=== PATIENT | female | born 2005 | race American Indian/Alaskan Native ===

== ENCOUNTER 2025-06-20 23:07 | Emergency (ER) | payer MEDICAID, SELFPAY ==
[2025-06-20 23:08] VITALS: BMI 39.9
[2025-06-20 23:14] VITALS: BP 131/90; PULSE 82; RESP 18; TEMP 36.4; O2SAT 100
[2025-06-20] MEDS: HYDROcodone/APAP 5/325 TABLET 1 TAB PO (23:44)
[2025-06-20] MEDS: SODIUM CHLORIDE 0.9% 1000 ML 1,000 ML 999 ML IV (23:45)
[2025-06-20] MEDS: ONDANSETRON INJ 2 MG/ML INJ 2 ML 4 MG IVP (23:45)
[2025-06-20] MEDS: FAMOTIDINE INJ 10 MG/ML VIAL 2 ML 20 MG IVP (23:46)
--- NOTE | 2025-06-21 | XR_ITS ---
Examination: Abdomen sonogram, Limited Date and time of exam: June 10002024, 0038 hrs. Indications: Epigastric pain beginning several hours ago Technique: Real-time jain scale transabdominal sonographic images of the upper abdomen obtained. Findings: Multiple gallstones. Normal gallbladder wall 0.2 cm Common bile duct 0.3 cm. Pancreatic head prominent 3.6 cm Liver 19.7 cm fatty infiltration no focal liver lesions Normal hepatopedal portal venous flow. Patent IVC. Impression: Cholelithiasis Pancreatic head measures prominent, if pancreatitis is a clinical consideration, suggest CT scan abdomen pelvis post intravenous contrast follow-up
[2025-06-21 00:04] LABS: Basophils # (Auto) 0.0 Thou/mm3 (0.0-0.2); Basophils % (Auto) 0 % (0-2.5); Eosinophils # (Auto) 0.1 Thou/mm3 (0.0-0.5); Eosinophils % (Auto) 1 % (0-10); Hematocrit 39.2 % (36.0-46.0); Hemoglobin 13.5 g/dL (12.0-16.0); Immature Granulocytes Auto 0.03 Thou/mm3 (0.00-0.00); Lymphocytes # (Auto) 4.0 Thou/mm3 (1.0-4.8); Lymphocytes % (Auto) 30 % (10-50); Mean Corpuscular HGB Conc 34.4 g/dl (31.0-37.0); Mean Corpuscular Hemoglobin 29.2 pg (25.0-35.0); Mean Corpuscular Volume 85 fL (80-100); Monocytes # (Auto) 0.7 Thou/mm3 (0.0-0.8); Monocytes % (Auto) 5 % (0-12); Neutrophils # (Auto) 8.4 Thou/mm3 (1.8-7.7); Neutrophils % (Auto) 63 % (37-80); Nucleated Red Blood Cell # 0.00 Thou/mm3 (0.00-0.00); Nucleated Red Blood Cell % 0 /100 WBC (0); Platelet Count 303 Thou/mm3 (140-440); RDW Standard Deviation 43.2 fL (36.4-46.3); Red Blood Count 4.63 Miln/mm3 (4.00-5.20); White Blood Count 13.3 Thou/mm3 (3.6-11.0)
[2025-06-21 00:36] LABS: Alanine Aminotransferase 8 U/L (10-49); Anion Gap 12 (7-16); Aspartate Amino Transferase 16 U/L (0-34); BUN/Creatinine Ratio 15 Ratio (12-20); Bilirubin,Total 0.2 mg/dL (0.3-1.2); Blood Urea Nitrogen 9 mg/dL (9-23); Calcium 10.1 mg/dL (8.3-10.6); Carbon Dioxide 23.4 mMol/L (20.0-31.0); Chloride 106 mMol/L (98-107); Creatinine (Component) 0.6 mg/dL (0.6-1.3); Estimated Creatinine Clearance 188.2 mL/min (>60); Glucose 93 mg/dL (74-106); Osmolality,Calculated 279 (275-295); Potassium 3.6 mMol/L (3.4-5.1); Sodium 141 mMol/L (136-145); Total Protein 7.1 gm/dL (5.7-8.2); eGFR > 60 See Note
[2025-06-21 00:37] LABS: Albumin, Serum 4.5 gm/dL (3.5-5.0); Albumin/Globulin Ratio 1.7 (1.2-2.2); Alkaline Phosphatase 100 U/L (46-116); Calcium (Corrected) 10.1 mg/dL (8.5-10.1); Globulin 2.6 gm/dL (2.3-3.5); Lipase 41 U/L (12-53)
[2025-06-21 01:58] LABS: Collection Type, Urine Clean Catch
[2025-06-21 02:12] LABS: Bacteria,Urine Rare; Bilirubin,Urine Negative (Negative); Blood,Urine 1+ (Negative); Clarity,Urine Clear (Clear/Hazy); Color,Urine Colorless (Lt Yel-Yel); Glucose, Urine Negative (Negative); Ketones,Urine Negative (Negative); Leukocyte Esterase,Urine Negative (Negative); Nitrite,Urine Negative (Negative); PH,Urine 6.5 (5.0-7.0); Protein,Urine Negative (Neg - Trace); RBC,Urine 4 /hpf (0-3); Specific Gravity,Urine 1.010 (1.001-1.035); Squamous Epithelial Cell,Urine 2 /hpf (0-5); Urobilinogen,Urine Negative mg/dL (0.0-1.0); WBC,Urine 1 /hpf (0-5)
[2025-06-21 02:20] LABS: HCG Qualitative,Urine Negative
--- NOTE | 2025-06-21 02:24 | PRELIM_ITS ---
Gallbladder ultrasound. June 21, 2025 0038 hours Clinical history:Abdominal pain. Epigastric pain x few hours with nausea. No prior study is available for comparison. Findings: The visualized liver is enlarged measuring 19.7 cm and demonstrates increased echogenicity with smooth contour. The main portal vein is patent and demonstrates hepatopetal flow. Multiple calculi are demonstrated within the gallbladder with posterior acoustic shadowing, without evidence of gallbladder w all thickening or pericholecystic fluid. The common duct is normal in caliber at 3 mm. The pancreas is unremarkable to the extent visualized. No free fluid is demonstrated on the submitted images. The inferior vena cava to the extent visualized is within normal limits. Impression: Cholelithiasis. No evidence of wall thickening, pericholecystic fluid or biliary dilatation. Hepatomegaly with fatty infiltration of the liver. Report Electronically Signed By: Margarito Neil 06/21/2025 2:23:47 AM [EST]
--- NOTE | 2025-06-21 03:06 | PD.EDABDPN ---
ED Abdominal Pain RME/HPI General Chief Complaint: Abdominal Pain Stated complaint: STOMACH ISSUE Time seen by provider: 06/20/25 23:15 Arrival date/time: 06/20/25 23:07 This is a case of 29-year-old female who came in in the emergency room due to abdominal pain on and off for 3 days worse today associated with constipation alternating with diarrhea today no nausea no vomiting no blood in stool patient location is on epigastric area and right upper quadrant burning and cramping in character persistence of the symptoms this patient decided to sought consult here in the emergency room Limitations: no limitations Related Data Home Medications ?Medication ?Instructions ?Recorded ?Confirmed vits no.124-ferrous fum 1 tab PO DAILY 05/24/23 05/25/23 27 mg iron-folic acid 800 mcg tablet ( Vitamin) Previous Rx's ?Medication ?Instructions ?Recorded docusate sodium 100 mg capsule 100 mg PO BID #60 caps 05/26/23 (Colace) ibuprofen 800 mg tablet 800 mg PO Q6H PRN pain #90 tabs 05/26/23 lanolin 50 % topical ointment 1 applic topical TID PRN skin 05/26/23 irritation #15 tubes famotidine 20 mg tablet (Pepcid) 20 mg PO BID #60 tabs 06/21/25 hydrocodone 5 mg-acetaminophen 325 1 tab PO Q6H PRN pain #12 tabs 06/21/25 mg tablet ondansetron 4 mg disintegrating 4 mg PO Q8H PRN nausea and 06/21/25 tablet vomiting #20 tabs Allergies Allergy/AdvReac Type Severity Reaction Status Date / Time No Known Allergies Allergy Verified 06/20/25 23:08 Review of Systems Review of Systems Systems Reviewed: All systems reviewed, normal except as documented Constitutional Constitutional: Reports system reviewed and no additional complaints, except as documented, Denies chills and Denies fever(s) Cardiovascular Cardiovascular: Reports system reviewed and no additional complaints, except as documented, Reports as per HPI, Denies chest pain and Denies dyspnea Respiratory Respiratory: Reports system reviewed and no additional complaints, except as documented and Denies dyspnea Gastrointestinal Gastrointestinal: Reports system reviewed and no additional complaints, except as documented, Reports as per HPI, Reports abdominal pain, Reports constipation, Reports diarrhea, Denies heartburn, Denies nausea and Denies vomiting Genitourinary Genitourinary: Reports system reviewed and no additional complaints, except as documented and Reports as per HPI Neurologic Neurologic: Reports system reviewed and no additional complaints, except as documented and Reports as per HPI Past Medical History Past Medical History NEUROLOGIC: Negative Neurological Disorders CARDIAC: Negative Cardiac Disorders or Congestive Heart Failure RESPIRATORY: Negative Chronic Obstructive Pulmonary Disease (COPD) or Asthma GASTROINTESTINAL: Negative Gastrointestinal Disorders GENITOURINARY: Negative Genitourinary Disorders or Renal Disease REPRODUCTIVE: Negative Endometriosis, Genital Herpes, Gonorrhea, Pelvic Inflammatory Disease, Previous Pregnancies, Syphilis or Uterine Prolapse MUSCULOSKELETAL: Negative Musculoskeletal Disorders ENDOCRINE: Negative Endocrine Disorders, Diabetes Mellitus Type 1 or Diabetes Mellitus Type 2 HEMATOLOGIC: Negative Blood Disorders PSYCHO/SOCIAL: Positive Anxiety (controlled by pt.); Negative Psychiatric Problems, Schizophrenia, Recreational Drug Use, Bipolar Disorder, Depression, Behavior Problems, Self-Mutilation, Attention Deficit Disorder, Attention Deficit Hyperactivity Disorder, Depression, Post Traumatic Stress Disorder or Eating Disorder OTHER HISTORY: Negative Hospitalization, Autoimmune Disease, Down Syndrome, Autism, Developmental Delay or Falls Family History FAMILY HISTORY: Positive Family Psychiatric Problems (anxiety); Negative Family Respiratory Disorders, Family Cardiac Disorders, Family Gastrointestinal Problems, Family Cancer, Family Surgery or Family Anesthesia Reaction Surgical History SURGICAL: Negative Section Social History SMOKING STATUS: Current some day smoker ED Exam General Limitations: Present no limitations General appearance: Present alert, in no apparent distress and other (Physical examination patient is awake alert oriented not in distress nontoxic looking well-hydrated well-nourished) Head Head exam: Present atraumatic, normocephalic and normal inspection Eye Eye exam: Present normal appearance, PERRL and EOMI ENT ENT exam: Present normal exam, normal oropharynx and mucous membranes moist Neck Neck exam: Present normal inspection, full ROM and trachea midline; Absent tenderness, meningismus, lymphadenopathy or thyromegaly Chest Chest inspection: Present normal inspection and symmetric chest wall rise; Absent tenderness Respiratory Respiratory exam: Present normal lung sounds bilaterally; Absent respiratory distress, wheezes, stridor, accessory muscle use or prolonged expiratory phase Cardiovascular Cardiovascular exam: Present regular rate, normal rhythm and normal heart sounds; Absent bradycardia, tachycardia, irregular rhythm, systolic murmur or diastolic murmur Abdominal Exam Abdominal exam: Present soft, tenderness (Mild tenderness in the epigastric area and right upper quadrant no CVA tenderness) and normal bowel sounds; Absent distention, guarding, rebound, rigidity, diminished bowel sounds, hyperactive bowel sounds, hypoactive bowel sounds, organomegaly, trauma, psoas sign, obturator sign, Waller's sign, Rovsing's sign, tenderness at McBurney's Point, ascites or hernia Extremities Exam Extremities exam: Present normal inspection and full ROM Back Exam Back exam: Present normal inspection and full ROM Neurological Exam Neurological exam: Present alert, oriented X3, CN II-XII intact, normal gait and reflexes normal; Absent motor sensory deficit Psychiatric Psychiatric exam: Present normal affect and normal mood Skin Skin exam: Present warm, dry, intact and normal color Course Quality Measures none Orders Category Date Time Status US gall bladder Stat Exams 06/21/25 00:00 Taken CBC Stat Lab 06/20/25 23:40 Completed Comprehensive Metabolic Panel Stat Lab 06/20/25 23:40 Completed HCG Qualitative,Urine Stat Lab 06/21/25 01:14 Completed Lipase Stat Lab 06/20/25 23:40 Completed Urinalysis Stat Lab 06/21/25 01:14 Completed Famotidine Inj [Pepcid Inj] Med 06/20/25 23:30 Discontinued 20 mg IVP X1 ONE HYDROcodone*/APAP 5/325 [Luck 5/325] Med 06/20/25 23:30 Discontinued 1 tab PO X1 ONE Ondansetron Inj [Zofran Inj] Med 06/20/25 23:30 Discontinued 4 mg IVP X1 ONE Sodium Chloride 0.9% 1000 ml [Ns] 1,000 ml Med 06/20/25 23:30 Discontinued IV 999 mls/hr Vital Signs Vital signs: Vital Signs Temperature 97.6 F 06/20/25 23:14 Pulse Rate 82 06/20/25 23:14 Respiratory Rate 18 06/20/25 23:14 Blood Pressure 131/90 H 06/20/25 23:14 Pulse Oximetry (%) 100 06/20/25 23:14 Oxygen Delivery Method Room Air 06/20/25 23:14 Oxygen saturation 100% room air normal Abdominal Pain MDM MDM Narrative MDM Narrative:: This is a case of 29-year-old female who came in in the emergency room due to abdominal pain on and off for 3 days worse today associated with constipation alternating with diarrhea today no nausea no vomiting no blood in stool patient location is on epigastric area and right upper quadrant burning and cramping in character persistence of the symptoms this patient decided to sought consult here in the emergency room physical examination patient is awake alert oriented not dehydrated well-hydrated well-nourished patient has no signs and symptoms sepsis dehydration nor acute abdomen abdominal exam is benign nonsurgical no guarding no rebound no rigidity mild tenderness in the epigastric area and right upper quadrant negative Waller's negative psoas negative Rovsing's no active obturator negative CVA tenderness the rest of the physical examination neurological exam is normal and unremarkable blood test showed no leukocytosis no anemia kidney and liver function is normal no electrolyte imbalance lipase is normal urinalysis is normal ultrasound of the gallbladder showed cholelithiasis hepatomegaly and fatty liver patient was given a bolus of normal saline morphine Pepcid and Zofran which patient condition markedly and resolved the symptoms patient reassessment abdominal pain is resolved no guarding no rebound no rigidity no tenderness patient was advised to follow-up with PCP to be referred to quick mixer operator for further evaluation and treatment of cholelithiasis hepatomegaly and fatty liver and general surgeon for cholelithiasis modified diet was advised return precaution to ER for worsening symptoms is advised Patient discharge Patient data External records reviewed:: [facility] previous records Clinical information provided by:: patient Social determinants that could affect healthcare access:: none Patient has the following chronic illnesses:: None How is presenting disease/condition affected by chronic disease/condition?: no chronic disease Evaluation data The following diagnostics were reviewed and interpreted by me:: lab results and radiology exam(s) Lab and/or radiology exams considered but not ordered:: Reviewed Interpretation Summary: Reviewed Medications / Prescriptions Medications or Prescriptions considered but not ordered:: Given Medication administrations:: Medication Administration History Discontinued Medications Hydrocodone Bitart/Acetaminophen (Hydrocodone/Apap 5/325 Tablet) 1 tab PO X1 ONE Stop: 06/20/25 23:31 Last Admin: 06/20/25 23:44 Dose: 1 tab Documented By: NITA Famotidine (Famotidine Inj 10 Mg/Ml Vial 2 Ml) 20 mg IVP X1 ONE Stop: 06/20/25 23:31 Last Admin: 06/20/25 23:46 Dose: 20 mg Documented By: NITA Sodium Chloride (Ns) 1,000 mls @ 999 mls/hr IV .Q1H1M ONE Stop: 06/21/25 00:30 Last Infusion: 06/21/25 01:02 Dose: Infused Documented By: Admin: 06/20/25 23:45 Dose: 999 mls/hr Documented By: SM Ondansetron HCl (Ondansetron Inj 2 Mg/Ml Inj 2 Ml) 4 mg IVP X1 ONE; Protocol Stop: 06/20/25 23:31 Last Admin: 06/20/25 23:45 Dose: 4 mg Documented By: NITA Given Consultations Consultation(s) initiated? (list below): No Diagnosis Differential diagnosis abdominal pain: abdominal pain and other (Cholelithiasis cholecystitis constipation diarrhea) Most likely diagnosis given after review of the tests above:: Cholelithiasis hepatomegaly fatty liver Admission Indicated Admission indicated?: not indicated Explain why admission is indicated or not indicated:: Not indicated Admission Request Was there a request for admission?: No Admission Attestation Admission request attestation: Not indicated Disposition Plan Disposition Plan: Discharge Discharge Attestation Discharge Attestation: The patient and all family members were given an opportunity to ask questions and understood the discharge instructions. Discharge instructions specifically effects, indications for sooner follow up or return to the emergency department, and the expected course of current diagnosis. Patient condition: Stable Discharge Plan Plan Patient Disposition: HOME (Self Care) Patient condition on transfer: Stable Prescriptions/Referrals Prescriptions/Med Rec: New hydrocodone-acetaminophen 5-325 mg tablet 1 tab PO Q6H MDD max 4 tabs per day PRN (Reason: pain) Qty: 12 0RF ondansetron 4 mg tablet,disintegrating 4 mg PO Q8H PRN (Reason: nausea and vomiting) Qty: 20 0RF famotidine [Pepcid] 20 mg tablet 20 mg PO BID Qty: 60 0RF No Action Vitamin 27 mg iron- 800 mcg Tablet 1 tab PO DAILY ibuprofen 800 mg tablet 800 mg PO Q6H MDD 4 PRN (Reason: pain) Qty: 90 0RF docusate sodium [Colace] 100 mg capsule 100 mg PO BID Qty: 60 0RF lanolin 50 % ointment 1 applic topical TID PRN (Reason: skin irritation) Qty: 15 0RF Referrals: Hernan Horton PA-C [Primary Care Provider] - In 1 week Problem List Clinical Impression: Abdominal pain, Cholelithiasis, Fatty liver, Hepatomegaly Patient/Caregiver Discharge Instructions Education Materials: Tests for Liver Disease, Abdominal Pain, Nonalcoholic Fatty Liver ..., What Are Gallstones Additional Instructions: Follow-up with your primary care physician in 2 days for reevaluation and to be referred to quick mixer operator for further evaluation and treatment of cholelithiasis hepatomegaly and fatty liver and to be referred to general surgeon for further evaluation and treatment of cholelithiasis recurrence persistent worsening symptoms or any emergent concern call 911 or go to the nearest emergency room take your medication as directed increase water intake keep hydrated Pedialyte Gatorade for hydration avoid spicy food avoid high cholesterol foods avoid fatty fried baby food avoid alcohol soda coffee avoid skipping of meals Print Language: Nepali Stand Alone Forms: Marge Award Info., Patient Portal Info Letter PA/ELECTRIC [employer]EM[employer] Supervising Physician PA/E[employer]AN Supervising Physician: Dr. Alvarez
== END 2025-06-21 03:13 | disposition home or self-care (01) ==
PROVIDERS: Nurse Practitioner Family; Emergency Provider Emergency Medicine; PCP Physician Assistant
DX: K80.20 Calculus of gallbladder without cholecystitis without obstruction (principal); K76.0 Fatty (change of) liver, not elsewhere classified; R16.0 Hepatomegaly, not elsewhere classified
CPT/HCPCS: 36415; 76705; 80053; 81001; 81025; 83690; 85025; 96361; 96374; 96375; 99283; J2405; J3490; J7030; A9270

== ENCOUNTER 2025-08-16 11:29 | Outpatient (AMB) | payer MEDICAID, SELFPAY ==
[2025-08-16 11:35] VITALS: BP 114/69; PULSE 75; RESP 18; TEMP 35.5; O2SAT 97; BMI 42.0
--- NOTE | 2025-08-16 11:35 | PD.GSCLVISIT ---
Vital Signs - [facility] 08/16/25 11:35 Height 1.68 m Height Method Measured Weight 118.076 kg Weight Measurement Method Standing Scale BMI 42.0 BP 114/69 Blood Pressure Source Automatic Cuff Blood Pressure Location Left Upper Arm Position Right Lateral Respiration 18 Pulse 75 Pulse Source Monitor Temp 95.9 F L Temp Source Temporal Artery Scan Pulse Oximetry (%) 97 Oxygen Delivery Method Room Air Med/Allergies Allergies & Medications Allergies No Known Allergies Allergy (Verified 08/16/25 11:37) Medication Reconciliation vits no.124-ferrous fum 27 mg iron-folic acid 800 mcg tablet ( Vitamin) 1 tab PO DAILY 05/24/23 [History Confirmed 08/16/25] docusate sodium 100 mg capsule (Colace) 100 mg PO BID #60 caps 05/26/23 [Rx Confirmed 08/16/25] ibuprofen 800 mg tablet 800 mg PO Q6H PRN pain #90 tabs 05/26/23 [Rx Confirmed 08/16/25] lanolin 50 % topical ointment 1 applic topical TID PRN skin irritation #15 tubes 05/26/23 [Rx Confirmed 08/16/25] famotidine 20 mg tablet (Pepcid) 20 mg PO BID #60 tabs 06/21/25 [Rx Confirmed 08/16/25] hydrocodone 5 mg-acetaminophen 325 mg tablet 1 tab PO Q6H PRN pain #12 tabs 06/21/25 [Rx Confirmed 08/16/25] ondansetron 4 mg disintegrating tablet 4 mg PO Q8H PRN nausea and vomiting #20 tabs 06/21/25 [Rx Confirmed 08/16/25] MA Intake Visit Data Collection New Patient or Established: Established Patient (seen at [facility] within 3 years) Seen by Clinical Staff ONLY (RN/MA): No Reason for Visit:: REFERRAL CONSTIPATION Pain Present Currently: No Pain scale:: 0 Pain Scale Used: [employer] Required: No PCP or OBGYN visit in last 3 months: Yes Hx Now: No Do You Feel Safe at Home: Yes Authorities Contacted: N/A Smoking Status Smoking Status: Former smoker Immunization / Flu Flu Vaccine in the Last 12 Months: Yes Flu Vaccine Exclusion Criteria: Already Received Past Medical History Past Medical History NEUROLOGIC: Negative Neurological Disorders CARDIAC: Negative Cardiac Disorders or Congestive Heart Failure RESPIRATORY: Negative Chronic Obstructive Pulmonary Disease (COPD) or Asthma GASTROINTESTINAL: Negative Gastrointestinal Disorders GENITOURINARY: Negative Genitourinary Disorders or Renal Disease REPRODUCTIVE: Negative Endometriosis, Genital Herpes, Gonorrhea, Pelvic Inflammatory Disease, Previous Pregnancies, Syphilis or Uterine Prolapse ENDOCRINE: Negative Endocrine Disorders, Diabetes Mellitus Type 1 or Diabetes Mellitus Type 2 HEMATOLOGIC: Negative Blood Disorders PSYCHO/SOCIAL: Positive Anxiety (controlled by pt.); Negative Psychiatric Problems, Schizophrenia, Recreational Drug Use, Bipolar Disorder, Depression, Behavior Problems, Self-Mutilation, Attention Deficit Disorder, Attention Deficit Hyperactivity Disorder, Depression, Post Traumatic Stress Disorder or Eating Disorder OTHER HISTORY: Negative Hospitalization, Autoimmune Disease, Down Syndrome, Autism, Developmental Delay or Falls Family History FAMILY HISTORY: Positive Family Psychiatric Problems (anxiety); Negative Family Respiratory Disorders, Family Cardiac Disorders, Family Gastrointestinal Problems, Family Cancer, Family Surgery or Family Anesthesia Reaction Surgical History SURGICAL: Negative Section Social History SMOKING STATUS: Smoking status: Former smoker ALCOHOL: Alcohol Intake: Former HOUSING: Housing: House LIVES WITH: Lives With: Family HPI HPI Narrative 20F referred for constipation as well as gallstones. Pt states she has had constipation since 2020, she tends to have a BM every few days though it is soft and does not always require straining. She admits to drinking minimal water daily and has not tried fiber or stool softeners/laxatives. She denies any pencil thin stools, blood in stool, anorexia or unintentional weight loss and has never had a colonoscopy. She denies any perianal pain. Pt also notes having episodes of epigastric pain for months. It is worsened after eating fatty foods and tends to last a few hours associated with nausea. Patient presented to ER for this pain and early June and underwent ultrasound consistent with gallstones PMH: Obesity PSH: None Meds: Omeprazole as needed Allergies: NKDA ROS Review of Systems Systems Reviewed: All systems reviewed, normal except as documented Objective/Exam General General Appearance: alert, cooperative and well groomed Resp Respiratory exam: Absent respiratory distress Abdominal Abdominal exam: Present soft; Absent distention or tenderness Results Ultrasound reviewed Assessment & Plan Diagnosis / Problem List (1) Symptomatic cholelithiasis: Status: Acute Assessment & Plan: 20F with history of symptomatic cholelithiasis. I explained that surgery is indicated as she would likely continue to have episodes of pain otherwise. I explained benefits/risks of surgery including need for conversion to open, bleeding, infection, injury to nearby structures requiring further procedures including the possibility of the need for major biliary reconstruction which would need to be done at a tertiary hospital, as well as postoperative hernia and diarrhea. All questions were answered and patient is agreeable to proceeding Plan: Will schedule laparoscopic cholecystectomy possible open (2) Constipation: Status: Acute Assessment & Plan: I recommended patient increase her water intake and when she is used to that to then add fiber supplementation. Office Procedures GNS Level of Care Nursing/Assessment Patient Status: Established Patient Nursing Assessment/Reassesment: Medication Reconciliation, Update PMH in EMR and Vital Signs Coordination of Care: Complex Care and Chronic Disease 1-5, Education Complex Pt/Fam, Consent,records obtained, informed consent, Results/Orders obtained and Staff clarify orders Established Patient Charge Established Patient Point Assignment: 95 Established Patient Point Charge: Level 3 (80-115) Patient Portal Questionaires Social History Living Situation History Housing: House Tobacco History Smoking Status: Former smoker Alcohol History Alcohol Intake: Former Domestic Abuse History Do You Feel Safe at Home: Yes Review of Systems Report any current symptoms Only answer those that you have currently: Past Medical History Past Medical History Have you ever been diagnosed with any of the following: Cardiology Problems Congestive Heart Failure: No Respiratory Problems Chronic Obstructive Pulmonary Disease (COPD): No Asthma: No Genital/Urinary Problems Renal Disease: No Reproductive Problems Endometriosis: No Genital Herpes: No Gonorrhea: No Pelvic Inflammatory Disease: No Previous Pregnancies: No Syphilis: No Uterine Prolapse: No Endocrine Problems Diabetes Mellitus Type 1: No Diabetes Mellitus Type 2: No Psychologic Problems Schizophrenia: No Recreational Drug Use: No Bipolar Disorder: No Depression: No Anxiety: Yes (controlled by pt.) Behavior Problems: No Self-Mutilation: No Attention Deficit Disorder: No Attention Deficit Hyperactivity Disorder: No Depression: No Post Traumatic Stress Disorder: No Eating Disorder: No Other Problems Hospitalization: No Autoimmune Disease: No Down Syndrome: No Autism: No Developmental Delay: No Falls: No
== END 2025-08-16 12:08 | disposition home or self-care (01) ==
LOC: HODSRG 11:29
PROVIDERS: PCP Physician Assistant; Referring Provider Physician Assistant; Supervising Provider Surgery; Visit Provider Surgery
DX: K80.20 Calculus of gallbladder without cholecystitis without obstruction (principal); K59.00 Constipation, unspecified
CPT/HCPCS: 99213; G0463

== ENCOUNTER 2025-09-13 11:37 | Outpatient (AMB) | payer MEDICAID, SELFPAY ==
--- NOTE | 2025-09-13 11:40 | GSCOFFNT_ITS ---
Vital Signs - [facility] 09/13/25 11:46 Height 1.68 m Height Method Measured Weight 117.14 kg Weight Measurement Method Standing Scale BMI 41.5 BP 115/69 Blood Pressure Source Automatic Cuff Blood Pressure Location Left Upper Arm Position Sitting Respiration 18 Pulse 97 Pulse Source Monitor Temp 96.8 F Temp Source Temporal Artery Scan Pulse Oximetry (%) 97 Oxygen Delivery Method Room Air Med/Allergies Allergies & Medications Allergies No Known Allergies Allergy (Verified 09/13/25 11:47) Medication Reconciliation vits no.124-ferrous fum 27 mg iron-folic acid 800 mcg tablet ( Vitamin) 1 tab PO DAILY 05/24/23 [History Confirmed 09/13/25] docusate sodium 100 mg capsule (Colace) 100 mg PO BID #60 caps 05/26/23 [Rx Confirmed 09/13/25] ibuprofen 800 mg tablet 800 mg PO Q6H PRN pain #90 tabs 05/26/23 [Rx Confirmed 09/13/25] lanolin 50 % topical ointment 1 applic topical TID PRN skin irritation #15 tubes 05/26/23 [Rx Confirmed 09/13/25] famotidine 20 mg tablet (Pepcid) 20 mg PO BID #60 tabs 06/21/25 [Rx Confirmed 09/13/25] hydrocodone 5 mg-acetaminophen 325 mg tablet 1 tab PO Q6H PRN pain #12 tabs 06/21/25 [Rx Confirmed 09/13/25] ondansetron 4 mg disintegrating tablet 4 mg PO Q8H PRN nausea and vomiting #20 tabs 06/21/25 [Rx Confirmed 09/13/25] MA Intake Visit Data Collection New Patient or Established: Established Patient (seen at [facility] within 3 years) Seen by Clinical Staff ONLY (RN/MA): No Reason for Visit:: PRE OP LAP LANA Pain Present Currently: No Pain Scale Used: DelgadoMilvia/Numerical Supervisor [employer] Required: No PCP or OBGYN visit in last 3 months: Yes Hx Now: No Do You Feel Safe at Home: Yes Authorities Contacted: N/A Smoking Status Smoking Status: Former smoker Immunization / Flu Flu Vaccine in the Last 12 Months: Yes Flu Vaccine Exclusion Criteria: Already Received Past Medical History Past Medical History NEUROLOGIC: Negative Neurological Disorders CARDIAC: Negative Cardiac Disorders or Congestive Heart Failure RESPIRATORY: Negative Chronic Obstructive Pulmonary Disease (COPD) or Asthma GASTROINTESTINAL: Negative Gastrointestinal Disorders GENITOURINARY: Negative Genitourinary Disorders or Renal Disease REPRODUCTIVE: Negative Endometriosis, Genital Herpes, Gonorrhea, Pelvic Inflammatory Disease, Previous Pregnancies, Syphilis or Uterine Prolapse ENDOCRINE: Negative Endocrine Disorders, Diabetes Mellitus Type 1 or Diabetes Mellitus Type 2 HEMATOLOGIC: Negative Blood Disorders PSYCHO/SOCIAL: Positive Anxiety (controlled by pt.); Negative Psychiatric Problems, Schizophrenia, Recreational Drug Use, Bipolar Disorder, Depression, Behavior Problems, Self-Mutilation, Attention Deficit Disorder, Attention Deficit Hyperactivity Disorder, Depression, Post Traumatic Stress Disorder or Eating Disorder OTHER HISTORY: Negative Hospitalization, Autoimmune Disease, Down Syndrome, Autism, Developmental Delay or Falls Family History FAMILY HISTORY: Positive Family Psychiatric Problems (anxiety); Negative Family Respiratory Disorders, Family Cardiac Disorders, Family Gastrointestinal Problems, Family Cancer, Family Surgery or Family Anesthesia Reaction Surgical History SURGICAL: Negative Section Social History SMOKING STATUS: Smoking status: Former smoker ALCOHOL: Alcohol Intake: Former HOUSING: Housing: House LIVES WITH: Lives With: Family HPI HPI Narrative HISTORY OF PRESENT ILLNESS I, Kayla Sequeira, have obtained verbal consent from the patient, to be recorded during this encounter which may include, but not limited to, medical history, examination, treatment plans, and relevant health information.? Patient was informed that recording will be read and reviewed by myself before inclusion in the medical chart. The patient presents for a preoperative evaluation for a laparoscopic cholecystectomy. She reports overall good health with no recent episodes of pain. However, she experienced mild irritation after consuming a greasy pizza, which was not as severe as her previous episodes. She has been proactive in managing her diet, avoiding certain foods, and incorporating more fiber-rich items such as apples and bananas. She is also mindful of her fluid intake. She has no other complaints and no changes in her health since her last visit ROS Review of Systems Systems Reviewed: All systems reviewed, normal except as documented Objective/Exam General General Appearance: alert, cooperative and well groomed Resp Respiratory exam: Absent respiratory distress Assessment & Plan Diagnosis / Problem List (1) Symptomatic cholelithiasis: Status: Acute Assessment & Plan: 20F with history of symptomatic cholelithiasis. I explained benefits/risks of surgery including need for conversion to open, bleeding, infection, injury to nearby structures requiring further procedures including the possibility of the need for major biliary reconstruction which would need to be done at a tertiary hospital, as well as postoperative hernia and diarrhea. I also detailed the postoperative course and provided return precautions for after surgery. All questions were answered and patient is agreeable to proceeding Office Procedures GNS Level of Care Nursing/Assessment Patient Status: Established Patient Nursing Assessment/Reassesment: Medication Reconciliation, Update PMH in EMR and Vital Signs Coordination of Care: Complex Care and Chronic Disease 1-5, Education Complex Pt/Fam, Consent,records obtained, informed consent, Results/Orders obtained and Staff clarify orders Established Patient Charge Established Patient Point Assignment: 95 Established Patient Point Charge: EP Level 3 (80-115) Patient Portal Questionaires Social History Living Situation History Housing: House Tobacco History Smoking Status: Former smoker Alcohol History Alcohol Intake: Former Domestic Abuse History Do You Feel Safe at Home: Yes Review of Systems Report any current symptoms Only answer those that you have currently: Past Medical History Past Medical History Have you ever been diagnosed with any of the following: Cardiology Problems Congestive Heart Failure: No Respiratory Problems Chronic Obstructive Pulmonary Disease (COPD): No Asthma: No Genital/Urinary Problems Renal Disease: No Reproductive Problems Endometriosis: No Genital Herpes: No Gonorrhea: No Pelvic Inflammatory Disease: No Previous Pregnancies: No Syphilis: No Uterine Prolapse: No Endocrine Problems Diabetes Mellitus Type 1: No Diabetes Mellitus Type 2: No Psychologic Problems Schizophrenia: No Recreational Drug Use: No Bipolar Disorder: No Depression: No Anxiety: Yes (controlled by pt.) Behavior Problems: No Self-Mutilation: No Attention Deficit Disorder: No Attention Deficit Hyperactivity Disorder: No Depression: No Post Traumatic Stress Disorder: No Eating Disorder: No Other Problems Hospitalization: No Autoimmune Disease: No Down Syndrome: No Autism: No Developmental Delay: No Falls: No
[2025-09-13 11:46] VITALS: BP 115/69; PULSE 97; RESP 18; TEMP 36; O2SAT 97; BMI 41.5
== END 2025-09-13 11:53 | disposition home or self-care (01) ==
LOC: HODSRG 11:37
PROVIDERS: PCP Physician Assistant; Referring Provider Physician Assistant; Supervising Provider Surgery; Visit Provider Surgery
DX: K80.20 Calculus of gallbladder without cholecystitis without obstruction (principal); Z87.891 Personal history of nicotine dependence
CPT/HCPCS: 99213; G0463

== ENCOUNTER 2025-09-22 07:25 | Day surgery (SDC) | payer MEDICAID, SELFPAY ==
[2025-09-21 10:15] VITALS: BMI 42.5
[2025-09-21 12:11] LABS: Basophils # (Auto) 0.0 Thou/mm3 (0.0-0.2); Basophils % (Auto) 0 % (0-2.5); Eosinophils # (Auto) 0.1 Thou/mm3 (0.0-0.5); Eosinophils % (Auto) 1 % (0-10); Hematocrit 38.6 % (36.0-46.0); Hemoglobin 13.2 g/dL (12.0-16.0); Immature Granulocytes Auto 0.01 Thou/mm3 (0.00-0.00); Lymphocytes # (Auto) 2.4 Thou/mm3 (1.0-4.8); Lymphocytes % (Auto) 31 % (10-50); Mean Corpuscular HGB Conc 34.2 g/dl (31.0-37.0); Mean Corpuscular Hemoglobin 29.6 pg (25.0-35.0); Mean Corpuscular Volume 87 fL (80-100); Monocytes # (Auto) 0.4 Thou/mm3 (0.0-0.8); Monocytes % (Auto) 6 % (0-12); Neutrophils # (Auto) 4.8 Thou/mm3 (1.8-7.7); Neutrophils % (Auto) 62 % (37-80); Nucleated Red Blood Cell # 0.00 Thou/mm3 (0.00-0.00); Nucleated Red Blood Cell % 0 /100 WBC (0); Platelet Count 292 Thou/mm3 (140-440); RDW Standard Deviation 40.5 fL (36.4-46.3); Red Blood Count 4.46 Miln/mm3 (4.00-5.20); White Blood Count 7.6 Thou/mm3 (3.6-11.0)
[2025-09-21 12:42] LABS: HCG,Qualitative Serum Negative
[2025-09-21 12:48] LABS: INR 1.0 (0.9-1.3); Partial Thromboplastin Time 28.0 Seconds (22.0-36.0); Prothrombin Time 10.4 Seconds (9.0-12.2)
[2025-09-21 13:18] LABS: Anion Gap 10 (7-16); BUN/Creatinine Ratio 14 Ratio (12-20); Blood Urea Nitrogen 10 mg/dL (9-23); Calcium 9.2 mg/dL (8.3-10.6); Carbon Dioxide 25.1 mMol/L (20.0-31.0); Chloride 106 mMol/L (98-107); Creatinine (Component) 0.7 mg/dL (0.6-1.3); Estimated Creatinine Clearance 165.8 mL/min (>60); Glucose 91 mg/dL (74-106); Osmolality,Calculated 280 (275-295); Potassium 4.2 mMol/L (3.4-5.1); Sodium 141 mMol/L (136-145); eGFR > 60 See Note
[2025-09-22] VITALS (9 sets, daily range): BP systolic 101–128; BP diastolic 75–103; PULSE 85–96; RESP 15–20; TEMP 36.3–36.6; O2SAT 96–100; BMI 42.3
[2025-09-22] MEDS: RINGERS LACTATED 1000 ML 1,000 ML 20 ML IV (08:21)
--- NOTE | 2025-09-22 10:52 | PD.SUROPNT ---
Date of Procedure 09/22/25 Pre Op Diagnosis Symptomatic cholelithiasis Post Op Diagnosis Same Procedure Laparoscopic cholecystectomy Findings Distended gallbladder with numerous stones Procedure Description After discussion of risks and benefits, patient was brought to the operating room, SCDs were placed and general anesthesia was induced. She received preoperative antibiotics and was prepped and draped in the usual sterile fashion. After timeout a supraumbilical incision was made with a #15 blade and the skin was elevated with towel clamps. A Veress needle was placed through the incision and proper positioning was confirmed with a drop test. The abdomen was insufflated to 12 mmHg at which point the Veress was exchanged for a 5 mm camera using a Visiport technique. There were no signs of injury from the point of entry. 3 additional ports were placed under direct vision, one 12 mm at the epigastrium, one 5 mm right subcostal and one 5 mm right anterior axillary line. Patient was placed in reverse Trendelenburg. The fundus of the gallbladder was grasped and retracted cephalad and the infundibulum was grasped and retracted laterally. The lower third of the gallbladder was removed from the gallbladder bed using electrocautery and the hepatocystic triangle was cleared of all fat and fibrous tissue using blunt dissection. The critical view of safety was achieved showing 2 and only 2 structures entering the gallbladder. The cystic duct and cystic artery were clipped and transected in the usual fashion. The gallbladder was removed from the gallbladder bed using electrocautery. Hemostasis of the gallbladder bed was achieved using electrocautery. The specimen was removed in an Endo Catch bag via the epigastric port and the epigastric fascia was closed with two 0 Vicryl sutures using a Sai-Mally. Counts were confirmed correct. Pneumoperitoneum was released and ports were removed under direct vision. Incisions were irrigated and infiltrated with half percent Marcaine for a total of 30 cc. Incisions were closed with 4-0 Monocryl and reinforced with Dermabond. Patient was extubated and brought to PACU in stable condition Pathology / specimen Other (Gallbladder with stones) Estimated Blood Loss 25 Surgeon Kayla Sequeira MD Surgical Staff Operation Date: 09/22/25 09:30 Case Staff Anesthesiologist: Renaldo Sanchez RN First Assistant: Tori Orozco
--- NOTE | 2025-09-22 10:53 | ESDS_ITS ---
Planned Discharge Date 09/22/25 DS: Providers Provider Primary care physician: Hernan Horton PA-C Attending Provider on Admission: Kayla Sequeira MD Attending Provider on DC: Kayla Sequeira MD Discharging Provider: Kayla Sequeira MD Diagnosis Discharge Diagnosis (1) Symptomatic cholelithiasis: Status: Acute Problem List Completed Was Problem List Reviewed/Reconciled?: Yes Exam Vital Signs Temp Pulse Resp BP Pulse Ox 97.8 F 90 15 125/84 98 09/22/25 08:05 09/22/25 08:05 09/22/25 08:05 09/22/25 08:05 09/22/25 08:05 Discharge Plan Plan Patient Disposition: HOME (Self Care) Prescriptions/Referrals Prescriptions/Med Rec: New oxycodone-acetaminophen [Percocet] 5-325 mg tablet 1 tab PO Q6H MDD 4 tabs PRN (Reason: pain) Qty: 10 0RF Rx Instructions: Take 1 tablet as needed every 6 hours for moderate to severe pain No Action hydrocodone-acetaminophen 5-325 mg tablet 1 tab PO Q6H MDD max 4 tabs per day PRN (Reason: pain) Qty: 12 0RF famotidine [Pepcid] 20 mg tablet 20 mg PO BID Qty: 60 0RF ibuprofen 800 mg tablet 800 mg PO Q6H MDD 4 PRN (Reason: pain) Qty: 90 0RF Referrals: Kayla Sequeira MD [Physician, General Surgery] Hernan Horton PA-C [Primary Care Provider] Patient/Caregiver Discharge Instructions Other Discharge Activity Instructions:: You may resume showering in 2 days, on 09/24 It is okay to get incisions wet at that time, pat dry after Avoid bathing or swimming for 2 weeks Your incisions have skin glue on them which will fall off on its own and does not need to be replaced Your stitches will not need to be removed During the surgery we fill your abdomen with air in order to see the structures. Some of this air tends to linger and cause pain that is referred to the shoulder as well as pain with deep breaths. This will get better with time. Being out of bed and walking helps the air to absorb faster Avoid lifting objects greater than 10 pounds for 6 weeks if you develop worsening pain, nausea/vomiting, fever or signs of jaundice please seek care in ER Education Materials: Preventing Surgical Site Infections Print Language: Maori Stand Alone Forms: Marge Award Info., Patient Portal Info Letter Discharge Order Discharge Orders: Discharge (Routine); Ordered 09/22/25 Ordered By: Kayla Sequeira Results Results: Laboratory Laboratory results: results reviewed PROCEDURES: Procedure Date 09/22/25 Procedures Laparoscopic cholecystectomy
--- NOTE | 2025-09-22 11:03 | SUR.PHASEI ---
pt received from OR in recovery bay 1. pt obtunded, breathing unlabored on oxymask 8l, oral airway in place. v/s stable. pt dressing to abd dermabond x4 cdi. report received from Dr. Sanchez and Jan SANDOVAL.
[2025-09-22] MEDS: fentaNYL CIT INJ 50 mCg/ML AMP 2ML 25 MCG IVP ×2 (11:33→11:46)
--- NOTE | 2025-09-22 12:25 | SUR.PHASEII ---
Pt. meets criteria for discharge, VSS, no c/o pain or nausea at this time, lap sites x4 CDI, no active bleeding or redness noted, IV discontinued without complications, discharge instructions provided to pt. and pt.'s grandmother, verbalized understanding, pt. escorted to vehicle via w/c with all of belongings by staff.
== END 2025-09-22 12:25 | disposition home or self-care (01) ==
PROVIDERS: PCP Physician Assistant; Referring Provider Surgery; Visit Provider Surgery
PROC: 0FT44ZZ Resection of Gallbladder, Percutaneous Endoscopic Approach (ICD-10-PCS; CPT 47562; principal; 2025-09-22 09:15)
DX: K80.10 Calculus of gallbladder with chronic cholecystitis without obstruction (principal)
CPT/HCPCS: 47562; 36415; 80048; 84703; 85025; 85610; 85730; A4217; A4649; J0694; J0696; J1100; J1885; J2250; J2405; J2704; J3010; J3490; J7120

== ENCOUNTER 2025-10-04 10:04 | Outpatient (AMB) | payer MEDICAID, SELFPAY ==
[2025-10-04 10:21] VITALS: BP 95/64; PULSE 84; RESP 18; TEMP 36.3; O2SAT 97; BMI 40.9
--- NOTE | 2025-10-04 10:21 | GSCOFFNT_ITS ---
Vital Signs - [facility] 10/04/25 10:21 Height 1.68 m Height Method Measured Weight 115.666 kg Weight Measurement Method Standing Scale BMI 40.9 BP 95/64 Blood Pressure Source Automatic Cuff Blood Pressure Location Right Upper Arm Position Sitting Respiration 18 Pulse 84 Pulse Source Monitor Temp 97.3 F Temp Source Temporal Artery Scan Pulse Oximetry (%) 97 Oxygen Delivery Method Room Air Med/Allergies Allergies & Medications Allergies No Known Allergies Allergy (Verified 10/04/25 10:22) Medication Reconciliation ibuprofen 800 mg tablet 800 mg PO Q6H PRN pain #90 tabs 05/26/23 [Rx Confirmed 10/04/25] famotidine 20 mg tablet (Pepcid) 20 mg PO BID #60 tabs 06/21/25 [Rx Confirmed 10/04/25] hydrocodone 5 mg-acetaminophen 325 mg tablet 1 tab PO Q6H PRN pain #12 tabs 06/21/25 [Rx Confirmed 10/04/25] oxycodone-acetaminophen 5 mg-325 mg tablet (Percocet) 1 tab PO Q6H PRN pain #10 tabs 09/22/25 [Rx Confirmed 10/04/25] MA Intake Visit Data Collection New Patient or Established: Established Patient (seen at [facility] within 3 years) Seen by Clinical Staff ONLY (RN/MA): No Reason for Visit:: 2 WEEK POST OP LAP LANA Pain Present Currently: No Pain Scale Used: Delgado-Young/Numerical Footwear Stitcher Required: No PCP or OBGYN visit in last 3 months: Yes Hx Now: No Do You Feel Safe at Home: Yes Authorities Contacted: N/A Smoking Status Smoking Status: Current some day smoker Cessation Counseling Provided: LORENAALEXY was advised that quitting smoking is the single most important factor to protect the health of themselves and their family. Discussed the benefits of quitting smoking with patient. Encouraged patient to quit smoking and provided Cessation assistance materials and resources. Tobacco Use: Vapor Cigarette Years smoked: 1 Are you interested in quitting?: No Immunization / Flu Flu Vaccine in the Last 12 Months: Yes Flu Vaccine Exclusion Criteria: Already Received Past Medical History Past Medical History NEUROLOGIC: Negative Neurological Disorders or Seizures CARDIAC: Negative Cardiac Disorders or Congestive Heart Failure RESPIRATORY: Negative Chronic Obstructive Pulmonary Disease (COPD) or Asthma GASTROINTESTINAL: Positive Gastrointestinal Disorders, Gall Bladder Disease and Obesity GENITOURINARY: Negative Genitourinary Disorders or Renal Disease REPRODUCTIVE: Negative Endometriosis, Genital Herpes, Gonorrhea, Pelvic Inflammatory Disease, Previous Pregnancies, Syphilis or Uterine Prolapse ENDOCRINE: Negative Endocrine Disorders, Diabetes Mellitus Type 1 or Diabetes Mellitus Type 2 HEMATOLOGIC: Negative Blood Disorders PSYCHO/SOCIAL: Positive Anxiety (controlled by pt.); Negative Psychiatric Problems, Schizophrenia, Recreational Drug Use, Bipolar Disorder, Depression, Behavior Problems, Self-Mutilation, Attention Deficit Disorder, Attention Deficit Hyperactivity Disorder, Depression, Post Traumatic Stress Disorder or Eating Disorder OTHER HISTORY: Negative Hospitalization, Autoimmune Disease, Down Syndrome, Autism, Developmental Delay, Shingles, Falls, Blood Transfusions, Anesthesia Reactions, Clostridium Difficile or Cancer Family History FAMILY HISTORY: Positive Family Psychiatric Problems and Family Surgery; Negative Family Respiratory Disorders, Family Cardiac Disorders, Family Gastrointestinal Problems, Family Cancer or Family Anesthesia Reaction Surgical History SURGICAL: Negative Section Social History SMOKING STATUS: Smoking status: Current some day smoker ALCOHOL: Alcohol Intake: Current HOUSING: Housing: House LIVES WITH: Lives With: Family HPI HPI Narrative 20F who presented with symptomatic cholelithiasis s/p laparoscopic cholecystectomy 09/22 here for planned follow-up. Patient reports she is having some soreness at her epigastric incision, however it is mild and she is not currently taking any pain medications. She denies nausea, fever or diarrhea, and her appetite is intact although she has been sticking to a liquid diet ROS Review of Systems Systems Reviewed: All systems reviewed, normal except as documented Objective/Exam General General Appearance: alert, cooperative and well groomed Resp Respiratory exam: Absent respiratory distress Abdominal Abdominal exam: Present soft and incision (c/d/i, no erythema, no fluctuance or tenderness); Absent distention or tenderness Results Pathology of gallbladder reviewed Assessment & Plan Diagnosis / Problem List (1) Symptomatic cholelithiasis: Status: Acute Assessment & Plan: 20F s/p laparoscopic cholecystectomy 09/22 for symptomatic cholelithiasis, recovering well overall. I explained that she should avoid heavy lifting for 6 weeks postop and provided return precautions. All questions were answered and patient expressed understanding Office Procedures GNS Level of Care Nursing/Assessment Patient Status: Established Patient Nursing Assessment/Reassesment: Medication Reconciliation, Update PMH in EMR and Vital Signs Coordination of Care: Complex Care and Chronic Disease 1-5, Education Complex Pt/Fam, Consent,records obtained, informed consent, Results/Orders obtained and Staff clarify orders Established Patient Charge Established Patient Point Assignment: 95 Established Patient Point Charge: EP Level 3 (33-912) Patient Portal Questionaires Social History Living Situation History Housing: House Tobacco History Smoking Status: Current some day smoker Alcohol History Alcohol Intake: Current Domestic Abuse History Do You Feel Safe at Home: Yes Review of Systems Report any current symptoms Only answer those that you have currently: Past Medical History Past Medical History Have you ever been diagnosed with any of the following: Neurological Problems Seizures: No Cardiology Problems Congestive Heart Failure: No Respiratory Problems Chronic Obstructive Pulmonary Disease (COPD): No Asthma: No Stomache/Intestinal Problems Gall Bladder Disease: Yes Obesity: Yes Genital/Urinary Problems Renal Disease: No Reproductive Problems Endometriosis: No Genital Herpes: No Gonorrhea: No Pelvic Inflammatory Disease: No Previous Pregnancies: No Syphilis: No Uterine Prolapse: No Endocrine Problems Diabetes Mellitus Type 1: No Diabetes Mellitus Type 2: No Psychologic Problems Schizophrenia: No Recreational Drug Use: No Bipolar Disorder: No Depression: No Anxiety: Yes (controlled by pt.) Behavior Problems: No Self-Mutilation: No Attention Deficit Disorder: No Attention Deficit Hyperactivity Disorder: No Depression: No Post Traumatic Stress Disorder: No Eating Disorder: No Other Problems Hospitalization: No Autoimmune Disease: No Down Syndrome: No Autism: No Developmental Delay: No Shingles: No Falls: No Blood Transfusions: No Anesthesia Reactions: No Clostridium Difficile: No Cancer: No
== END 2025-10-04 10:33 | disposition home or self-care (01) ==
LOC: HODSRG 10:04
PROVIDERS: PCP Physician Assistant; Referring Provider Physician Assistant; Supervising Provider Surgery; Visit Provider Surgery
DX: K80.20 Calculus of gallbladder without cholecystitis without obstruction (principal)
CPT/HCPCS: 99213; G0463